=== PATIENT | female | born 1930 | race Caucasian/White ===

== ENCOUNTER 2016-10-13 14:00 | Outpatient (CLI) ==
--- NOTE | 2016-10-14 08:55 | MRI ---
EXAM: MRI brain without and with IV contrast. DATE: 13 October 2016. HISTORY: Ataxia. Balance problems. TECHNIQUE: Sagittal T1W pre and post contrast, axial T2W, axial FLAIR, axial T1W pre and postcontra st, and axial DWI sequences brain were obtained using 1.2 Mariela magnet. Additional coronal and axia l T1W sequences before and after IV contrast, and axial T2W thin-slice images through the brainstem and IACs were obtained. CONTRAST: Omniscan - 11 ml IV. COMPARISON: MRI brain 10 July 2007. FINDINGS: The ventricles, cisterns, cerebral sulci and cerebellar sulci are enlarged to a slightly greater degree compared to June 2007. No midline shift, mass effect, or loculated extra-axial flui d collection is apparent. No acute infarct, hemorrhage or enhancing intra-axial neoplasm is visible . No abnormal enhancement is seen in the brain, meninges, or dura. Narrow, confluent rim of T2W/FL AIR hyperintensity is observed in the white matter abutting each lateral ventricle. A handful of 2- 4 mm, T2W/FLAIR bright, non-enhancing foci are scattered within the farrell radiata and subcortical w angela matter bilaterally. Several 2-4 mm T2W/FLAIR bright, non-enhancing foci are revealed in the po ns. The sousa-white matter differentiation is normal. Punctate areas of T2W GRE dark signal within each basal ganglia appear benign. The cerebellopontine angles and visible cervical spinal cord are normal. There is no cerebellar tonsillar ectopia. The pituitary gland is normal in size and signal . Corpus callosum is normal in size and configuration. Flow voids are present in the major intracr anial arteries and in the dural venous sinuses. No aneurysm, AVM, or dural venous sinus thrombosis is apparent. The optic chiasm, optic tracts, and optic nerves are normal. Appearance in the lens o f each eye suggests prior cataract surgery. The orbits are otherwise normal. There is no acute si nusitis. Small lymph nodes are demonstrated in the upper neck bilaterally. No upper neck mass or lymphadenopathy is detected. No calvarial neoplasm or acute fracture is evident. The 5th cranial nerves are symmetric in size, without abnormal enhancement. Meckel's cave and the c avernous sinus are normal bilaterally. No definitive trigeminal nerve displacement or compression i s apparent. Thin slice, high-resolution images through the IACs and brainstem reveal no abnormal enhancement or neoplasm involving the 7th/8th cranial nerve complexes. The cochlea, semicircular canals, and vesti bule are symmetric and normal bilaterally. No abnormal enlargement of the vestibular aqueduct is se en on either side. The mastoid air cells appear normal. No cholesteatoma or mastoiditis is apparen t. The right anterior inferior cerebellar artery is in close proximity to the cisternal segment of the right 7th/8th CN complex. No definitive cranial nerve displacement or compression. IMPRESSIONS: 1. No acute infarct, hemorrhage, intra-axial mass or hydrocephalus. 2. Minimal, benign bilateral basal ganglia mineral deposition. 3. Minor cerebral and brainstem small vessel disease. 4. Mild/moderate cerebral and cerebellar atrophy. 5. A vessel in close proximity to right seventh/eighth cranial nerve complex (cisternal segment), w ithout definitive vascular sling. Otherwise, normal bilateral 7th/8th CN, IACs and temporal bones.
== END 2016-10-13 14:01 | disposition home or self-care (01) ==
LOC: RAD 14:00
PROVIDERS: ATTEND Internal Medicine
DX: R27.0 Ataxia, unspecified (principal)

== ENCOUNTER 2017-09-27 09:58 | Outpatient (POV) | END 2017-09-27 17:00 | LOC: OUTPT 09:58 | PROVIDERS: ATTEND Otolaryngology | DX: H91.90 Unspecified hearing loss, unspecified ear (principal) ==